=== PATIENT | male | born 1995 | race Caucasian/White ===

== ENCOUNTER 2020-12-16 14:55 | Emergency (ER) | payer OTHER ==
[~2020-12-16] VITALS: Ht 180.3 cm; Wt 121.6 kg
[2020-12-16 14:59] VITALS: BP 136/74
[2020-12-16] MEDS ORDERED: KETOROLAC 30 MG/ML VIAL IVP ONE (15:25)
[2020-12-16] MEDS ORDERED: NACL 0.9% 1,000 ML IV SCH (15:25)
[2020-12-16] MEDS ORDERED: ONDANSETRON 4 MG/2 ML VIAL IVP ONE (15:25)
[2020-12-16 15:57] LABS: BASOPHILS % (AUTO) 0.3 % (0.0-2.0); EOSINOPHILS % (AUTO) 0.2 % (0.0-4.0); HEMOGLOBIN 12.3 g/dL (12.0-18.0); LYMPHOCYTES # (AUTO) 1.4 K/uL (2.0-11.5); LYMPHOCYTES % (AUTO) 9.6 % (20.5-51.1); MEAN CORPUSCULAR HEMOGLOBIN 31 pg (27-31); MEAN CORPUSCULAR HGB CONC 35 g/dL (33-37); MEAN CORPUSCULAR VOLUME 88.7 fL (80-94); MONOCYTES # (AUTO) 0.7 K/uL (0.8-1.0); MONOCYTES % (AUTO) 4.9 % (1.7-9.3); NEUTROPHILS # (AUTO) 12.6 K/uL (1.8-7.7); PLATELET COUNT (AUTO) 269 K/uL (140-450); RED BLOOD CELL COUNT(AUTO) 3.95 MIL/uL (4.20-6.10); RED CELL DISTRIBUTION WIDTH 12.6 % (11.6-13.7); WHITE BLOOD COUNT (AUTO) 14.8 K/uL (4.8-10.8)
[2020-12-16 16:08] LABS: APPEARANCE,URINE CLEAR (CLEAR); BILIRUBIN,URINE NEGATIVE (NEGATIVE); BLOOD, URINE NEGATIVE (NEGATIVE); LEUKOCYTE ESTERASE ,URINE NEGATIVE (NEGATIVE); NITRITE, URINE NEGATIVE (NEGATIVE); PH,URINE 7.5 (5.0-9.0); UGLUCOSE NEGATIVE (NEGATIVE)
[2020-12-16 16:10] LABS: ANION GAP 16.7 (8-16); CARBON DIOXIDE 15.2 mmol/L (21-32); CREATININE 0.3 mg/dL (0.6-1.3); TOTAL BILIRUBIN 0.6 mg/dL (0.0-1.0)
[2020-12-16 16:16] LABS: COLOR,URINE AMBER (YELLOW)
[2020-12-16 16:25] LABS: POTASSIUM 1.9 mmol/L (3.5-5.1)
[2020-12-16] MEDS ORDERED: POTASSIUM CHL 20 MEQ/NACL 0.9% 1,000 ML IV ONE (16:30)
[2020-12-16] MEDS ORDERED: POTASSIUM CHLORIDE 10 MEQ TABER PO ONE (17:30)
[2020-12-16] MEDS ORDERED: MAGNESIUM CHLORIDE 64 MG TABEC PO ONE (17:45)
[2020-12-16 19:40] VITALS: BP 117/68
== END 2020-12-16 19:40 ==
LOC: MED 14:55
DX: E87.6 Hypokalemia (principal); R10.9 Unspecified abdominal pain; E83.42 Hypomagnesemia; F12.10 Cannabis abuse, uncomplicated; Z88.1 Allergy status to other antibiotic agents; Z20.822 Contact with and (suspected) exposure to COVID-19
CPT/HCPCS: 36415; 71045; 80053; 81003; 83690; 83735; 85025; 93005; 96361; 96365; 96366; 96375; 99285; J1885; J2405; J7030